=== PATIENT | male | born 1975 | race African-American/Black ===

== ENCOUNTER 2019-04-08 16:52 | Emergency (ER) | payer OTHER ==
[2019-04-08 17:10] VITALS: TEMP 98.4; BMI 24.8
[2019-04-08] MEDS ORDERED: SODIUM CHLORIDE 0.9% 500 ML INFUS.BAG IV ONE (17:20)
--- NOTE | 2019-04-08 17:40 | PDOC ---
Documentation entered by Alyssa Abbasi SCRIBE, acting as scribe for Elsa Mcfadden MD. Elsa Mcfadden MD: This documentation has been prepared by the scribe, Alyssa Abbasi SCRIBE, under my direction and personally reviewed by me in its entirety. I confirm that the documentation accurately reflects all work, treatment, procedures, and medical decision making performed by me. History of Present Illness - General Chief Complaint: Lightheaded Stated Complaint: dizzy Time Seen by Provider: 04/08/19 16:54 History Source: Patient Exam Limitations: No Limitations - History of Present Illness Initial Comments: 04/08/19 17:34 The patient is a 43-year-old male, with a past medical history of NIDDM, who presents to the ED with weakness and lightheadedness today. The patient works at the [employer] and has been out in the sun for the past few days. He is also complaining of B/L LE cramping and nausea, but no vomiting. Patient has been drinking fluids, but states that he "feels dehydrated." He denies any falls or loss of consciousness. The patient denies any fevers, chills, or abdominal pain. He denies any chest pain or shortness of breath. Allergies: NKA Social History: Denies. Surgical History: Denies. Past History - Past Medical History Allergies/Adverse Reactions: Allergies Allergy/AdvReac Type Severity Reaction Status Date / Time No Known Allergies Allergy Verified 04/08/19 16:52 Home Medications: Ambulatory Orders Aspirin [ASA -] 81 mg PO DAILY 04/08/19 Empagliflozin [Jardiance] 25 mg PO DAILY 04/08/19 Glipizide 5 mg PO DAILY 04/08/19 Linagliptin/Metformin HCl [Jentadueto 2.5 mg-1000 mg Tab] 1 each PO BID Diabetes: Yes (NIDDM) - Suicide/Smoking/Psychosocial Hx Smoking History: Never smoked Have you smoked in the past 12 months: No Number of Cigarettes Smoked Daily: 0 Hx Alcohol Use: No Drug/Substance Use Hx: No Substance Use Type: None Review of Systems - Review of Systems Able to Perform ROS?: Yes Comments:: 04/08/19 17:35 GENERAL/CONSTITUTIONAL: (+)Weakness. No fever or chills. No sweats. HEAD, EYES, EARS, NOSE AND THROAT: No change in vision or hearing. No ear pain or discharge. No sore throat or mouth pain. No difficulty swallowing. No congestion. CARDIOVASCULAR: No chest pain or palpitations, syncope or edema. RESPIRATORY: No SOB, cough, wheezing, or hemoptysis. GASTROINTESTINAL No nausea/vomiting. No diarrhea or constipation. No bloody stools. GENITOURINARY: No hematuria, dysuria, frequency, urgency or other changes. MUSCULOSKELETAL: No joint or muscle swelling or pain. No decreased range of motion. No neck or back pain. SKIN: No rash or changes in skin color or lesions. No wounds. NEUROLOGIC: alert and oriented appropriately (+)Lightheadedness. No headache, loss of consciousness. No gait instability. HEMATOLOGIC/LYMPHATIC: No anemia, easy bruising/bleeding, or history of blood clots. No swollen lymph nodes ALLERGIC/IMMUNOLOGIC: No allergies PSYCH: no anxiety/depression All other systems reviewed and negative, or as documented in HPI. *Physical Exam - Vital Signs Last Vital Signs Temp Pulse Resp BP Pulse Ox 98.4 F 20 L 20 122/76 99 04/08/19 16:52 04/08/19 16:52 04/08/19 16:52 04/08/19 16:52 04/08/19 16:52 - Physical Exam Comments: 04/08/19 17:36 General: Well appearing, awake and alert, NAD. HEENT: NCAT, PERRL, EOMI, clear conjunctiva, anicteric, moist mucus membranes, clear oropharynx, no oral lesions.. Neck: neck supple, FROM Resp: CTAB, normal and even respirations, no respiratory distress CVS: mild tachycardia, no murmurs, 2+ peripheral pulses throughout, no peripheral edema Abdomen: soft, NTND, no rebound or guarding. No CVAT. Back: nontender, normal inspection and ROM MSK: no edema, MOTTA x4, ROM intact. No clubbing or cyanosis. normal bulk and tone. Extremities: no calf tenderness Neuro: alert, oriented appropriately; no focal neurologic deficits Skin: warm and well perfused, cap refill <2 sec, normal color 04/08/19 18:23 ED Treatment Course - LABORATORY CBC & Chemistry Diagram: 04/08/19 17:37 04/08/19 17:37 Medical Decision Making - Medical Decision Making 04/08/19 18:20 See HPI for details. Prior notes reviewed, including admissions, discharges and consultations. Vital signs reviewed, no fever, normotensive, mild tachycardia likely from heat exhaustion/dehydration. DDX dehydration, heat exhaustion, rhabdo, electrolyte/metabolic derangements. clinically doubt dka. laboratory results and imaging reviewed, basic labs and lytes wnl, normal wbc ct. glucose normal +hyponatremia. likely dehydration/hypovolemic as he admits to exhaustion and feeling dizzy from heat bicarb mildly low, but does not appear acidotic/septic or toxic. ED course -interventions: IVF. - tolerating PO and on reassessment 6:15PM - feels much improved, abdomen benign. repeat VS normalizing. no distress, no respiratory or abdominal sx. well hydrated, eager for discharge Pt to be discharged in stable condition. Patient and family made aware of clinical impression, treatment recommendations and disposition plan, return precautions discussed (including but not limited to new or persistent/worsening symptoms, pain, fevers, or signs of infection, chest pain, respiratory distress , inability to tolerate oral intake, dehydration, syncope, or neurologic changes ). Follow up with PMD as recommended, follow up information provided, take medications as instructed for duration of time. continue with supportive care, avoid triggers and precipitants. All questions answered to patient's satisfaction and expressed understanding and comfort with this. At the time of discharge, the patient is alert, clinically improved, tolerating po and verbalizes understanding of instructions, satisfied with the care received and felt comfortable with the plan. Patient does not suffer from an acute life- threatening medical condition at this time and is safe for outpatient follow- up. 04/08/19 18:23 04/08/19 18:23 *DC/Admit/Observation/Transfer Diagnosis at time of Disposition: Dizziness, Myalgia, Hyponatremia - Discharge Dispostion Disposition: HOME Condition at time of disposition: Improved Decision to Admit order: No - Referrals [place] [facility] [place] [facility] [Provider Group] [facility] [Provider Group] - Patient Instructions Printed Discharge Instructions: DI for Heat Exhaustion and Heat Stroke, DI for Dizziness-Nonvertigo Additional Instructions: 1) Please follow-up with your primary care doctor in the next 1-2 days. Please call tomorrow for for any urgent issues. 2) You were given a copy of the tests performed today. Please bring the results with you and review them with your primary care doctor. Your laboratory results were normal except for low sodium, which could be dehydration related your blood sugar and muscle enzymes are normal 3) If you have any worsening of symptoms or any other concerns please return to the ED immediately. Return if worsening symptoms including fevers, headache, vomiting, visual or hearing disturbances, abdominal pain, chest pain, shortness of breath, syncope, dehydration, inability to take things by mouth/vomiting, altered mental status, or worsening concerning symptoms. 4) Please continue taking your home medications as directed. Stay well hydrated and rest adequately. Make an appointment. If you cannot follow-up with your primary care doctor please return to the ED - Post Discharge Activity Forms/Work/School Notes: Back to Work
[2019-04-08 17:48] LABS: BASO % 0.5 % (0-2.0); EOS % 0.4 % (0-4.5); HEMATOCRIT 45.3 % (35.4-49); HEMOGLOBIN 15.2 GM/dl (11.7-16.9); LYMPH % 26.3 % (8-40); MCH 30.9 pg (25.7-33.7); MCHC 33.5 g/dl (32.0-35.9); MEAN CELL VOLUME 92.3 fl (80-96); MEAN PLT VOLUME 8.5 fl (7.5-11.1); MONO % 6.1 % (3.8-10.2); NEUT % 66.7 % (42.8-82.8); PLATELET COUNT 262 K/MM3 (134-434); RBC 4.91 M/mm3 (4.00-5.60); RDW 12.9 % (11.9-15.9); WHITE BLOOD COUNT 4.6 K/mm3 (4.0-10.8)
[2019-04-08 18:02] LABS: POTASSIUM 4.1 mmol/L (3.5-5.1)
[2019-04-08 18:31] VITALS: BP 110/79; PULSE 99
== END 2019-04-08 18:32 | disposition home or self-care (01) ==
LOC: FER 16:52
PROC: 3E0337Z Introduction of Electrolytic and Water Balance Substance into Peripheral Vein, Percutaneous Approach (ICD-10-PCS; principal; 2019-04-08)
DX: E87.1 Hypo-osmolality and hyponatremia (principal); R42 Dizziness and giddiness; M79.10 Myalgia, unspecified site; E11.9 Type 2 diabetes mellitus without complications; Z79.82 Long term (current) use of aspirin
CPT/HCPCS: 36415; 80048; 82550; 85025; 99283-25

== ENCOUNTER 2019-04-10 10:00 | Inpatient (IN) | payer SELFPAY ==
[2019-04-10] MEDS ORDERED: SODIUM CHLORIDE 0.9% 1000 ML INFUS.BAG IV ONE ×2 (10:55→12:29)
[2019-04-10] MEDS ORDERED: ONDANSETRON 4 MG/2 ML VIAL IVPUSH ONE (10:56)
[2019-04-10] MEDS ORDERED: ONDANSETRON 4 MG/2 ML VIAL ONE ×2 (11:31→11:34)
[2019-04-10 11:37] LABS: BASO % 0.4 % (0-2.0); HEMOGLOBIN 17.2 GM/dl (11.7-16.9); LYMPH % 8.6 % (8-40); MCH 30.2 pg (25.7-33.7); MCHC 31.9 g/dl (32.0-35.9); MEAN CELL VOLUME 94.6 fl (80-96); MEAN PLT VOLUME 9.1 fl (7.5-11.1); MONO % 4.5 % (3.8-10.2); NEUT % 86.5 % (42.8-82.8); PLATELET COUNT 376 K/MM3 (134-434); RBC 5.71 M/mm3 (4.00-5.60); RDW 13.3 % (11.9-15.9); WHITE BLOOD COUNT 7.7 K/mm3 (4.0-10.8)
[2019-04-10 11:43] LABS: ALBUMIN 4.3 g/dl (3.4-5.0); BILIRUBIN,TOTAL 1.3 mg/dl (0.2-1); CALCIUM 10.5 mg/dl (8.5-10); CREATININE 1.6 mg/dl (0.55-1.3); POTASSIUM 5.9 mmol/L (3.5-5.1)
[2019-04-10 12:06] LABS: EPITHELIAL CELLS RARE /hpf
--- NOTE | 2019-04-10 12:29 | PDOC ---
History of Present Illness - General Chief Complaint: Lightheaded Stated Complaint: LIGHTHEADED History Source: Patient Exam Limitations: No Limitations - History of Present Illness Initial Comments: 04/10/19 12:24 43 yo male h/o NIDDM here for second ED visit for n/v abd pain. pt states he was seen in ED 2 days ago for feeling lightheaded. had been out in sun for fewdays. at that time was felt to be dehydrated. given fluids bolus, labs felt improved and dc home. yesterday pt began to feel worse developed n/v x 2, and vomiting x2 today. all nonbloody nonbilious. states he has not had a bm in several days. stopped his diabetes medication 2 days ago because was not eating or drinnking much . no f/c. does c/o right flank upper rib pain. has had mild cough, no f/c no h/o abdominal surgeries. no sick contacts. no other complaints. does have h/o renal stones, denies dysuria, or hematuria. pt takes glipizide, jardiance, and metformin / litagliptan for DM. no insulin. has not taken med fro 2 days. 04/10/19 14:59 Past History - Past Medical History Allergies/Adverse Reactions: Allergies Allergy/AdvReac Type Severity Reaction Status Date / Time No Known Allergies Allergy Verified 04/08/19 16:52 Home Medications: Ambulatory Orders Aspirin [ASA -] 81 mg PO DAILY 04/08/19 Empagliflozin [Jardiance] 25 mg PO DAILY 04/08/19 Glipizide 5 mg PO DAILY 04/08/19 Linagliptin/Metformin HCl [Jentadueto 2.5 mg-1000 mg Tab] 1 each PO BID COPD: No Diabetes: Yes (NIDDM) - Suicide/Smoking/Psychosocial Hx Smoking History: Never smoked Have you smoked in the past 12 months: No Number of Cigarettes Smoked Daily: 0 Hx Alcohol Use: No Drug/Substance Use Hx: No Substance Use Type: None Review of Systems - Review of Systems Constitutional: No: Chills, Diaphoresis HEENTM: No: Eye Pain Respiratory: No: Cough, Orthopnea ABD/GI: Yes: Constipated, Nausea, Vomiting : No: Burning, Dysuria, Hematuria Musculoskeletal: Yes: Back Pain Neurological: Yes: Weakness, Dizziness All Other Systems: Reviewed and Negative *Physical Exam - Vital Signs Last Vital Signs Temp Pulse Resp BP Pulse Ox 97.4 F L 119 H 20 124/70 100 04/10/19 10:18 04/10/19 10:18 04/10/19 10:18 04/10/19 10:18 04/10/19 10:18 - Physical Exam Comments: 04/10/19 12:26 awake alert lungs clear bilat heart reg tachycardia. no mrg abd soft mild right cva tenderness. abd otherwise soft. neg cabello's sign. ext wwp. nuero alert oriented x 3. ED Treatment Course - LABORATORY CBC & Chemistry Diagram: 04/10/19 10:45 04/10/19 13:40 - ADDITIONAL ORDERS Additional order review: Laboratory Results 04/10/19 04/10/19 04/10/19 11:30 10:45 10:45 WBC RBC Hgb Hct MCV MCH MCHC RDW Plt Count MPV Absolute Neuts (auto) Neutrophils % Lymphocytes % Monocytes % Eosinophils % Basophils % Sodium 133 L Potassium 5.9 H Chloride 101 Carbon Dioxide 7 L Anion Gap 25 H BUN 21.0 H Creatinine 1.6 H Est GFR (CKD-EPI)AfAm 61.11 Est GFR (CKD-EPI)NonAf 52.73 Random Glucose 278 H Calcium 10.5 H Total Bilirubin 1.3 H AST 22 ALT 23 Alkaline Phosphatase 95 Troponin I < 0.03 Total Protein 9.0 H Albumin 4.3 Urine Color Yellow Urine Appearance Clear Urine pH 5.0 Urine Protein 2+ H Urine Glucose (UA) 2+ Urine Ketones 4+ H Urine Blood 2+ H Urine Nitrite Negative Urine Bilirubin 1+ H Urine Urobilinogen 0.2 Ur Leukocyte Esterase Negative Urine RBC 5-10 Urine WBC 0-2 Ur Transition Epith Cell Rare Urine Casts Finely granular 0-1 04/10/19 10:45 WBC 7.7 RBC 5.71 H Hgb 17.2 H Hct 54.0 H D MCV 94.6 MCH 30.2 MCHC 31.9 L RDW 13.3 Plt Count 376 D MPV 9.1 Absolute Neuts (auto) 6.7 Neutrophils % 86.5 H D Lymphocytes % 8.6 D Monocytes % 4.5 Eosinophils % 0.0 D Basophils % 0.4 Sodium Potassium Chloride Carbon Dioxide Anion Gap BUN Creatinine Est GFR (CKD-EPI)AfAm Est GFR (CKD-EPI)NonAf Random Glucose Calcium Total Bilirubin AST ALT Alkaline Phosphatase Troponin I Total Protein Albumin Urine Color Urine Appearance Urine pH Urine Protein Urine Glucose (UA) Urine Ketones Urine Blood Urine Nitrite Urine Bilirubin Urine Urobilinogen Ur Leukocyte Esterase Urine RBC Urine WBC Ur Transition Epith Cell Urine Casts 04/10/19 10:45 RBC 5.71 H MCV 94.6 MCHC 31.9 L RDW 13.3 MPV 9.1 Neutrophils % 86.5 H D Lymphocytes % 8.6 D Monocytes % 4.5 Eosinophils % 0.0 D Basophils % 0.4 - RADIOLOGY Radiology Studies Ordered: Category Date Time Status SPIRAL- RENAL-STONE CT [CT] Stat CT Scan 04/10/19 12:20 Ordered GALLBLADDER US [US] Stat Ultrasound 04/10/19 12:04 Ordered - Medications Given in the ED: ED Medications Discontinued Medications Generic Name Dose Route Start Last Admin Trade Name Freq PRN Reason Stop Dose Admin Ondansetron HCl 4 mg 04/10/19 10:56 04/10/19 11:30 Zofran Injection IVPUSH 04/10/19 10:57 4 mg ONCE ONE Administration Sodium Chloride 1,000 ml 04/10/19 10:55 04/10/19 10:40 Normal Saline - IV 04/10/19 10:56 1,000 ml ONCE ONE Administration Medical Decision Making - Critical Care Time Total Critical Care Time (minutes): 1 (1 hr) Critical Care Statement: 43 yo n/v DM here wtih right sided abd pain. differential considered. found to be in DKA with acidosis ph 7.0 US RUQ with dilated CBD. pt given insulin, insulin gtt with glucose replacement. ARF noted. rescuscitated wt 2 L NS. d/w ICU for admission and admitting service. d/w family regarding findings. - Medical Decision Making 04/10/19 12:27 43 yo DM here with persistant n/v right flank/ abd pain feeling lightheaded. differential dka, dehydration, electrolyte abnormality, renal colic, biliary colic, carla, plan labs lipase cbc cmp ua. iv hydration and antiemetics. labs revealed pt with ketones in urine and blood. glucose mild elevated at 278, AG 25. t bili elevated. will add cpk r/o rhabdo, insulin and glucose. pt with SHERLYN creatinine 1.6, from 1.0 two days prior. 04/10/19 12:53 pt with dilated CBD on ultrasound no stones. noted to be in acute renal failure creatinine 1.6,. will obtain ct a/p eval for renal stone, or obstruction biliary duct. 04/10/19 15:00 pt with mild pancreatitis, dilated CBD. also noted mild DKA, AG initially 25, after fluids 22. sugar only 265. will add lactate r/o lactic acidosis from metformin. ph 7.0 will admit to ICU at [facility]. dW ICU pa , will initiate insulin gtt wtih Glucose at 75 / hr D5 1/2 ns. pt potassium elevated. d/w DR Flores for admission, lactic acid pending. *DC/Admit/Observation/Transfer Diagnosis at time of Disposition: DKA (diabetic ketoacidoses), Intractable vomiting, ARF (acute renal failure) - Discharge Dispostion Condition at time of disposition: Good Decision to Admit order: Yes - Referrals - Patient Instructions - Post Discharge Activity
[2019-04-10 14:02] LABS: ACETONE SERUM POSITIVE MODERATE 2+ (NEGATIVE)
[2019-04-10 14:05] LABS: ANION GAP 22 MMOL/L (8-16); CALCIUM 9.5 mg/dl (8.5-10); CHLORIDE 106 mmol/L (98-107); CO2 6 mmol/L (21-32); CREATININE 1.4 mg/dl (0.55-1.3); GLUCOSE,RANDOM 265 mg/dl (74-106); POTASSIUM 5.4 mmol/L (3.5-5.1); SODIUM 134 mmol/L (136-145)
[2019-04-10] MEDS ORDERED: INSULIN REGULAR HUMAN 100 UNITS/ML *VIAL IVPUSH ONE (14:26)
[2019-04-10 14:29] LABS: VENOUS PC02 29.1 mmHg (41-51)
[2019-04-10 14:31] LABS: VENOUS PO2 26.1 mmHg (30-40)
[2019-04-10 14:32] LABS: VENOUS PH 7.02 (7.31-7.41)
[2019-04-10] MEDS ORDERED: DEXTROSE 5%-0.45% SALINE 1,000 ML IV SCH (14:45)
[2019-04-10] MEDS ORDERED: INSULIN REGULAR HUMAN 100 UNITS/ML *VIAL ONE ×2 (14:46→16:52)
[2019-04-10] MEDS ORDERED: morphine CARPU-JECT 4 MG/1 ML DISP.SYRIN IVPUSH ONE (14:58)
[2019-04-10] MEDS ORDERED: morphine SULFATE 4 MG/ML VIAL ONE (15:26)
[2019-04-10] MEDS ORDERED: INSULIN REGULAR 100 UNITS in SODIUM CHLORIDE 99 ML IVPB SCH ×2 (16:00→16:02)
[2019-04-10 16:45] LABS: CALCIUM 9.1 mg/dl (8.5-10); CHLORIDE 107 mmol/L (98-107); CREATININE 1.3 mg/dl (0.55-1.3); POTASSIUM 4.8 mmol/L (3.5-5.1); SODIUM 132 mmol/L (136-145)
[2019-04-10 17:01] LABS: GLUCOSE,RANDOM 226 mg/dl (74-106)
[2019-04-10 17:04] LABS: ANION GAP 20 MMOL/L (8-16); CO2 < 5 mmol/L (21-32)
[2019-04-10 17:49] LABS: CHOLESTEROL 186 mg/dl (50-200); HDL CHOLESTEROL 56 mg/dl (40-60); LDL CHOLESTEROL (ONLY DFH) 84 mg/dl (5-100); TRIGLYCERIDES 229 mg/dl (0-150)
--- NOTE | 2019-04-10 19:21 | CONSULT ---
Consultation: UPDATE: Pt's BMP once in ICU resulted with anion gap 18, glucose random of 160's , and K of 4.7. Will change IVF to D5-1/2NS + 20KCL @125cc/hr. Will decrease insulin gtt by half due to downtrending glucose. Monitor next BMP around midnight. CONSULT SERVICE: ICU Resident HISTORY OF PRESENT ILLNESS: 43yo M with h/o of T2DM who presents today from [place] [facility] with complaint of nausea and NB/NB emesis x1 found to be in DKA. Pt normally takes Metformin/Litagliptin combo, Jardiance, and Glipizide for glycemic control. Unfortunately patient did not have enough money for his diabetic medications and he was unable to get new medications for the past 2 days. Pt was previously seen in [facility] for same complaints 2 days prior, however this was attributed to sun-exposure and resolved after IVF was administered. Today in [facility] ICU pt endorses improved nausea with no other episodes of emesis, however his general malaise continues. He reports a 2 days history of poor appetite and his last meal was at dinner 04/09 which composed of a bowl of soup (mostly broth). Pt denies any headaches, clouding of sensorium, blurry vision, fever/chills, shortness of breath, cough, palpitations, chest pain/discomfort, abdominal pain , diarrhea/constipation, dysuria, polyuria, hematuria, melena, focal neurological deficits. REVIEW OF SYSTEMS: As per HPI PHYSICAL EXAMINATION Vital Signs - 24 hr 04/10/19 04/10/19 04/10/19 10:18 12:15 14:20 Temperature 97.4 F L 98.1 F Pulse Rate 119 H Pulse Rate [ 104 H 109 H Apical] Respiratory 20 20 18 Rate Blood Pressure 124/70 Blood Pressure 119/72 137/81 [Left Arm] O2 Sat by Pulse 100 9 L 99 Oximetry (%) 04/10/19 04/10/19 04/10/19 16:00 17:26 17:33 Temperature 98.1 F 98.1 F 98.1 F Pulse Rate 110 H Pulse Rate [ 108 H 111 H Apical] Respiratory 18 18 18 Rate Blood Pressure 140/84 Blood Pressure 138/81 140/84 [Left Arm] O2 Sat by Pulse 100 100 Oximetry (%) 04/10/19 18:26 Temperature 98.1 F Pulse Rate 110 H Pulse Rate [ Apical] Respiratory 18 Rate Blood Pressure 140/84 Blood Pressure [Left Arm] O2 Sat by Pulse Oximetry (%) GENERAL: NAD, awake, alert, and fully oriented HEENT: NC/AT, EOMI, NGCO, sclera anicteric, [id number] mucosa no abnormalities of posterior oropharynx NECK: No JVD LUNGS: CTA bilaterally. No wheezes, and no crackles. No accessory muscle use. 98 % on RA HEART: Tachycardic@104bpm with regular rhythm, normal S1 and S2 without murmur ABDOMEN: Soft, NT/ND, normoactive BS, no guarding, no hepatomegaly. MUSCULOSKELETAL: No CVA tenderness. EXTREMITIES: 2+ pulses, warm, well-perfused. No calf tenderness. No peripheral edema. NEUROLOGICAL: CN II-XII intact with 5/5 strength throughout and sensation intact throughout. Normal speech. Normal gai PSYCHIATRIC: Cooperative. Good eye contact. Appropriate mood and affect. SKIN: Warm, dry, no rashes or lesions noted. Laboratory Results 04/10/19 04/10/19 04/10/19 10:45 10:45 10:45 WBC 7.7 RBC 5.71 H Hgb 17.2 H Hct 54.0 H D MCV 94.6 MCH 30.2 MCHC 31.9 L RDW 13.3 Plt Count 376 D MPV 9.1 Absolute Neuts (auto) 6.7 Neutrophils % 86.5 H D Lymphocytes % 8.6 D Monocytes % 4.5 Eosinophils % 0.0 D Basophils % 0.4 VBG pH POC VBG pCO2 POC VBG pO2 VBG HCO3 VBG O2 Sat (Denise) VBG Base Excess Sodium 133 L Potassium 5.9 H Chloride 101 Carbon Dioxide 7 L Anion Gap 25 H BUN 21.0 H Creatinine 1.6 H Est GFR (CKD-EPI)AfAm 61.11 Est GFR (CKD-EPI)NonAf 52.73 POC Glucometer Random Glucose 278 H Lactic Acid Calcium 10.5 H Total Bilirubin 1.3 H AST 22 ALT 23 Alkaline Phosphatase 95 Creatine Kinase Troponin I < 0.03 Total Protein 9.0 H Albumin 4.3 Triglycerides Cholesterol Total LDL Cholesterol HDL Cholesterol Lipase Urine Color Urine Appearance Urine pH Urine Protein Urine Glucose (UA) Urine Ketones Urine Blood Urine Nitrite Urine Bilirubin Urine Urobilinogen Ur Leukocyte Esterase Urine RBC Urine WBC Ur Transition Epith Cell Urine Casts Acetone, Qual 04/10/19 04/10/19 04/10/19 16:10 16:10 18:11 WBC RBC Hgb Hct MCV MCH MCHC RDW Plt Count MPV Absolute Neuts (auto) Neutrophils % Lymphocytes % Monocytes % Eosinophils % Basophils % VBG pH POC VBG pCO2 POC VBG pO2 VBG HCO3 VBG O2 Sat (Denise) VBG Base Excess Sodium 132 L Potassium 4.8 Chloride 107 Carbon Dioxide < 5 L Anion Gap 20 H BUN 22.0 H Creatinine 1.3 Est GFR (CKD-EPI)AfAm 78.55 Est GFR (CKD-EPI)NonAf 67.77 POC Glucometer 211 Random Glucose 226 H Lactic Acid Calcium 9.1 Total Bilirubin AST ALT Alkaline Phosphatase Creatine Kinase Troponin I Total Protein Albumin Triglycerides 229 H Cholesterol 186 Total LDL Cholesterol 84 HDL Cholesterol 56 Lipase Urine Color Urine Appearance Urine pH Urine Protein Urine Glucose (UA) Urine Ketones Urine Blood Urine Nitrite Urine Bilirubin Urine Urobilinogen Ur Leukocyte Esterase Urine RBC Urine WBC Ur Transition Epith Cell Urine Casts Acetone, Qual Active Medications Generic Name Dose Route Start Last Admin Trade Name Freq PRN Reason Stop Dose Admin Dextrose/Sodium Chloride 1,000 mls @ 75 mls/hr 04/10/19 14:45 04/10/19 14:50 D5-1/2ns - IV 75 mls/hr ASDIR SYED Administration Insulin Human Regular 100 100 mls @ 3 mls/hr 04/10/19 16:02 04/10/19 18:10 units/ Sodium Chloride IVPB 2 units/hr TITR SYED 2 mls/hr Titration Protocol 3 UNITS/HR ASSESSMENT/PLAN: Diabetic Ketoacidosis Polycythemia Mildly dilated CBD Hyperbilirubinemia Pseudohyponatremia --DKA criteria: (1) pH 7.02 (2) HCO <5 (3) Glucose >250 (4) Anion Gap 25 (5) Keturia --Insulin gtt .1U/kg/hr --Decrease to 0.5U/kg/hr if glucose downtrending <250 without closed gap --Original potassium 5.9 so IVF initiated without potassium --Monitor BMP q3h and monitor potassium; suspect adding potassium to fluids due to downtrending levels --BMP, Mg, Phos Stat ordered --IVF D5-1/2NS@75cc/hr currently --Will change based on stat BMP --Once anion gap closes can transition diet and to subcutaneous insulin coverage --Continue holding oral glycemic control while inpatient --GI consult for recommendations on moderately dilated CBD (0.6mm) --Likely will need MRCP (? outpatient vs. inpatient) --Monitor bilirubin in daily labs FEN: Fluids: D5-1/2NS@75cc/hr Electrolyte abnormalities: Na corrected 135 from previous BMP; Monitor Na levels Nutrition: NPO until anion gap closes (<12) PPX: DVT - Heparin Sq GI - Not indicated currently Dispo: ICU monitoring while in acute DKA stages Fernandez Reyes, DO - IM PGY-2 Visit type - Emergency Visit Emergency Visit: Yes ED Registration Date: 04/10/19 Care time: The patient presented to the Emergency Department on the above date and was hospitalized for further evaluation of their emergent condition. - New Patient This patient is new to me today: Yes Date on this admission: 04/10/19 - Critical Care Critical Care patient: Yes Total Critical Care Time (in minutes): 35 Critical Care Statement: The care of this patient involved high complexity decision making to prevent further life threatening deterioration of the patient 's condition and/or to evaluate & treat vital organ system(s) failure or risk of failure.
--- NOTE | 2019-04-10 20:01 | HP ---
CHIEF COMPLAINT: nausea/ vomiting PCP: HISTORY OF PRESENT ILLNESS: Critically ill 43 yo male transferred from [facility], h/o NIDDM came to hospital this past thursday, now returning with nausea, vomiting since about thursday, associated with some abdominal pain. Nonbloody/nonbilious vomiting, unable to eat or drink much. He was not able to obtain his DM meds due to insurance reasons. pt supoosed to take glipizide, jardiance, and metformin / litagliptan for DM ER course was notable for: (1) abd ct (2) liver u/s (3) Recent Travel: no PAST MEDICAL HISTORY: DM for last 7 years at least PAST SURGICAL HISTORY: no Social History: Smoking: no Alcohol: no Drugs: socially Family History: DM in multiple family members including mother Allergies No Known Allergies Allergy (Verified 04/08/19 16:52) HOME MEDICATIONS: Home Medications Medication Instructions Recorded Aspirin [ASA -] 81 mg PO DAILY 04/08/19 Empagliflozin [Jardiance] 25 mg PO DAILY 04/08/19 Glipizide 5 mg PO DAILY 04/08/19 Linagliptin/Metformin HCl 1 each PO BID 04/08/19 [Jentadueto 2.5 mg-1000 mg Tab] REVIEW OF SYSTEMS CONSTITUTIONAL: Absent: fever, chills, diaphoresis, weight change present- generalized weakness, malaise, loss of appetite, HEENT: Absent: rhinorrhea, nasal congestion, throat pain, throat swelling, difficulty swallowing, mouth swelling, ear pain, eye pain, visual changes CARDIOVASCULAR: Absent: chest pain, syncope, palpitations, irregular heart rate, lightheadedness , peripheral edema RESPIRATORY: Absent: cough, shortness of breath, dyspnea with exertion, orthopnea, wheezing, stridor, hemoptysis GASTROINTESTINAL: Absent: abdominal distension, diarrhea, constipation, melena, hematochezia present- nausea, vomiting, abdominal pain, GENITOURINARY: Absent: dysuria, frequency, urgency, hesitancy, hematuria, flank pain, genital pain MUSCULOSKELETAL: Absent: myalgia, arthralgia, joint swelling, back pain, neck pain SKIN: Absent: rash, itching, pallor HEMATOLOGIC/IMMUNOLOGIC: Absent: easy bleeding, easy bruising, lymphadenopathy, frequent infections ENDOCRINE: Absent: unexplained weight gain, unexplained weight loss, heat intolerance, cold intolerance NEUROLOGIC: Absent: headache, focal weakness or paresthesias, dizziness, unsteady gait, seizure, mental status changes, bladder or bowel incontinence PSYCHIATRIC: Absent: anxiety, depression, suicidal or homicidal ideation, hallucinations. PHYSICAL EXAMINATION Vital Signs - 24 hr 04/10/19 04/10/19 04/10/19 10:18 12:15 14:20 Temperature 97.4 F L 98.1 F Pulse Rate 119 H Pulse Rate [ 104 H 109 H Apical] Respiratory 20 20 18 Rate Blood Pressure 124/70 Blood Pressure 119/72 137/81 [Left Arm] O2 Sat by Pulse 100 9 L 99 Oximetry (%) 04/10/19 04/10/19 04/10/19 16:00 17:26 17:33 Temperature 98.1 F 98.1 F 98.1 F Pulse Rate 110 H Pulse Rate [ 108 H 111 H Apical] Respiratory 18 18 18 Rate Blood Pressure 140/84 Blood Pressure 138/81 140/84 [Left Arm] O2 Sat by Pulse 100 100 Oximetry (%) 04/10/19 18:26 Temperature 98.1 F Pulse Rate 110 H Pulse Rate [ Apical] Respiratory 18 Rate Blood Pressure 140/84 Blood Pressure [Left Arm] O2 Sat by Pulse Oximetry (%) GENERAL: Awake, alert, and fully oriented, in no acute distress. HEAD: Normal with no signs of trauma. EYES: Pupils equal, round and reactive to light, extraocular movements intact, sclera anicteric, conjunctiva clear. dry mucous membranes EARS, NOSE, THROAT: Ears normal, nares patent, oropharynx clear without exudates. Moist mucous membranes. NECK: Normal range of motion, supple without lymphadenopathy, JVD, or masses. LUNGS: Breath sounds equal, clear to auscultation bilaterally. No wheezes, and no crackles. No accessory muscle use. HEART: Regular rate and rhythm, normal S1 and S2 without murmur, rub or gallop. ABDOMEN: RUQ tenderness on palpation MUSCULOSKELETAL: Normal range of motion at all joints. No bony deformities or tenderness. No CVA tenderness. UPPER EXTREMITIES: 2+ pulses, warm, well-perfused. No cyanosis. No clubbing. No peripheral edema. LOWER EXTREMITIES: 2+ pulses, warm, well-perfused. No calf tenderness. No peripheral edema. NEUROLOGICAL: Cranial nerves II-XII intact. Normal speech. Normal gait. PSYCHIATRIC: Cooperative. Good eye contact. Appropriate mood and affect. SKIN: Warm, dry, normal turgor, no rashes or lesions noted, normal capillary refill. Laboratory Results - last 24 hr 04/10/19 04/10/19 04/10/19 10:45 10:45 10:45 WBC 7.7 RBC 5.71 H Hgb 17.2 H Hct 54.0 H D MCV 94.6 MCH 30.2 MCHC 31.9 L RDW 13.3 Plt Count 376 D MPV 9.1 Absolute Neuts (auto) 6.7 Neutrophils % 86.5 H D Lymphocytes % 8.6 D Monocytes % 4.5 Eosinophils % 0.0 D Basophils % 0.4 VBG pH POC VBG pCO2 POC VBG pO2 VBG HCO3 VBG O2 Sat (Denise) VBG Base Excess Sodium 133 L Potassium 5.9 H Chloride 101 Carbon Dioxide 7 L Anion Gap 25 H BUN 21.0 H Creatinine 1.6 H Est GFR (CKD-EPI)AfAm 61.11 Est GFR (CKD-EPI)NonAf 52.73 POC Glucometer Random Glucose 278 H Lactic Acid Calcium 10.5 H Total Bilirubin 1.3 H AST 22 ALT 23 Alkaline Phosphatase 95 Creatine Kinase Troponin I < 0.03 Total Protein 9.0 H Albumin 4.3 Triglycerides Cholesterol Total LDL Cholesterol HDL Cholesterol Lipase Urine Color Urine Appearance Urine pH Urine Protein Urine Glucose (UA) Urine Ketones Urine Blood Urine Nitrite Urine Bilirubin Urine Urobilinogen Ur Leukocyte Esterase Urine RBC Urine WBC Ur Transition Epith Cell Urine Casts Acetone, Qual 04/10/19 04/10/19 04/10/19 11:30 13:40 13:40 WBC RBC Hgb Hct MCV MCH MCHC RDW Plt Count MPV Absolute Neuts (auto) Neutrophils % Lymphocytes % Monocytes % Eosinophils % Basophils % VBG pH 7.02 L* POC VBG pCO2 29.1 L POC VBG pO2 26.1 L VBG HCO3 7.1 L VBG O2 Sat (Denise) 37.5 L VBG Base Excess -25.2 L Sodium 134 L Potassium 5.4 H Chloride 106 Carbon Dioxide 6 L Anion Gap 22 H BUN 22.0 H Creatinine 1.4 H Est GFR (CKD-EPI)AfAm 71.82 Est GFR (CKD-EPI)NonAf 61.96 POC Glucometer Random Glucose 265 H Lactic Acid Calcium 9.5 Total Bilirubin AST ALT Alkaline Phosphatase Creatine Kinase 84 Troponin I Total Protein Albumin Triglycerides Cholesterol Total LDL Cholesterol HDL Cholesterol Lipase Urine Color Yellow Urine Appearance Clear Urine pH 5.0 Urine Protein 2+ H Urine Glucose (UA) 2+ Urine Ketones 4+ H Urine Blood 2+ H Urine Nitrite Negative Urine Bilirubin 1+ H Urine Urobilinogen 0.2 Ur Leukocyte Esterase Negative Urine RBC 5-10 Urine WBC 0-2 Ur Transition Epith Cell Rare Urine Casts Finely granular 0-1 Acetone, Qual Positive moderate 2+ 04/10/19 04/10/19 04/10/19 13:40 15:52 16:10 WBC RBC Hgb Hct MCV MCH MCHC RDW Plt Count MPV Absolute Neuts (auto) Neutrophils % Lymphocytes % Monocytes % Eosinophils % Basophils % VBG pH POC VBG pCO2 POC VBG pO2 VBG HCO3 VBG O2 Sat (Denise) VBG Base Excess Sodium Potassium Chloride Carbon Dioxide Anion Gap BUN Creatinine Est GFR (CKD-EPI)AfAm Est GFR (CKD-EPI)NonAf POC Glucometer 228 Random Glucose Lactic Acid 1.3 Calcium Total Bilirubin AST ALT Alkaline Phosphatase Creatine Kinase Troponin I Total Protein Albumin Triglycerides Cholesterol Total LDL Cholesterol HDL Cholesterol Lipase 1753 H Urine Color Urine Appearance Urine pH Urine Protein Urine Glucose (UA) Urine Ketones Urine Blood Urine Nitrite Urine Bilirubin Urine Urobilinogen Ur Leukocyte Esterase Urine RBC Urine WBC Ur Transition Epith Cell Urine Casts Acetone, Qual 04/10/19 04/10/19 04/10/19 16:10 16:10 18:11 WBC RBC Hgb Hct MCV MCH MCHC RDW Plt Count MPV Absolute Neuts (auto) Neutrophils % Lymphocytes % Monocytes % Eosinophils % Basophils % VBG pH POC VBG pCO2 POC VBG pO2 VBG HCO3 VBG O2 Sat (Denise) VBG Base Excess Sodium 132 L Potassium 4.8 Chloride 107 Carbon Dioxide < 5 L Anion Gap 20 H BUN 22.0 H Creatinine 1.3 Est GFR (CKD-EPI)AfAm 78.55 Est GFR (CKD-EPI)NonAf 67.77 POC Glucometer 211 Random Glucose 226 H Lactic Acid Calcium 9.1 Total Bilirubin AST ALT Alkaline Phosphatase Creatine Kinase Troponin I Total Protein Albumin Triglycerides 229 H Cholesterol 186 Total LDL Cholesterol 84 HDL Cholesterol 56 Lipase Urine Color Urine Appearance Urine pH Urine Protein Urine Glucose (UA) Urine Ketones Urine Blood Urine Nitrite Urine Bilirubin Urine Urobilinogen Ur Leukocyte Esterase Urine RBC Urine WBC Ur Transition Epith Cell Urine Casts Acetone, Qual 04/10/19 19:30 WBC RBC Hgb Hct MCV MCH MCHC RDW Plt Count MPV Absolute Neuts (auto) Neutrophils % Lymphocytes % Monocytes % Eosinophils % Basophils % VBG pH POC VBG pCO2 POC VBG pO2 VBG HCO3 VBG O2 Sat (Denise) VBG Base Excess Sodium Potassium Chloride Carbon Dioxide Anion Gap BUN Creatinine Est GFR (CKD-EPI)AfAm Est GFR (CKD-EPI)NonAf POC Glucometer 207 Random Glucose Lactic Acid Calcium Total Bilirubin AST ALT Alkaline Phosphatase Creatine Kinase Troponin I Total Protein Albumin Triglycerides Cholesterol Total LDL Cholesterol HDL Cholesterol Lipase Urine Color Urine Appearance Urine pH Urine Protein Urine Glucose (UA) Urine Ketones Urine Blood Urine Nitrite Urine Bilirubin Urine Urobilinogen Ur Leukocyte Esterase Urine RBC Urine WBC Ur Transition Epith Cell Urine Casts Acetone, Qual imaging reviewed ekg showed sinus tachycardia ASSESSMENT/PLAN: #DKA - likely secondary to medication medication noncompliance. -admit to icu -insulin drip titrate as needed -IV fluid hydration - 1/2 NS/ D5W -when AG closes bridge with sc basal insulin -check electrolyes including mg, phos and correct as needed -switch insulin sliding scale for coverage once DKA resolves -zofran IV prn if nausea or vomiting -nurse informatics educator -start clear liquid diet and advance as tolerated #SHERLYN - likely prerenal azotemia from fluid losses -i/o -daily weights -renal u/s -avoid nephrotoxins #HAGMA - likely secondary to DKA -send ABG -correct underlying DKA #CBD dilatation, RUQ tenderness, and slight bilirubinemia - concerning for possible choledocholithiasis, cholangitis, -GI consult for possible MRCP/ ERCP #DVT ppx - heparin sc Critical care time 35 min Visit type - Emergency Visit Emergency Visit: Yes ED Registration Date: 04/10/19 Care time: The patient presented to the Emergency Department on the above date and was hospitalized for further evaluation of their emergent condition. - New Patient This patient is new to me today: Yes Date on this admission: 04/10/19 - Critical Care Critical Care patient: Yes Total Critical Care Time (in minutes): 35 Critical Care Statement: The care of this patient involved high complexity decision making to prevent further life threatening deterioration of the patient 's condition and/or to evaluate & treat vital organ system(s) failure or risk of failure.
[2019-04-10] MEDS ORDERED: ONDANSETRON 4 MG/2 ML VIAL IVPUSH PRN (20:42)
[2019-04-10 21:01] LABS: BLOOD UREA NITROGEN 19.2 mg/dL (7-18); CALCIUM 8.7 mg/dL (8.5-10.1); CREATININE 1.4 mg/dL (0.55-1.3); MAGNESIUM 2.1 mg/dL (1.8-2.4); PHOSPHOROUS 2.4 mg/dL (2.5-4.9); POTASSIUM 4.6 mmol/L (3.5-5.1)
[2019-04-10] MEDS: D5-1/2NS+20 MEQ KCL - 20 MEQ/1,000 ML INFUS.BAG IV SCH ×2 (21:22→21:31)
[2019-04-10] MEDS: HEPARIN NA (PORCINE) 5,000 UNITS/ML 1ML VIAL SQ SCH (21:26)
--- NOTE | 2019-04-11 00:10 | EKG ---
Test Reason : Blood Pressure : / mmHG Vent. Rate : 118 BPM Atrial Rate : 118 BPM P-R Int : 130 ms QRS Dur : 090 ms QT Int : 334 ms P-R-T Axes : 065 077 069 degrees QTc Int : 468 ms POOR DATA QUALITY, INTERPRETATION MAY BE ADVERSELY AFFECTED SINUS TACHYCARDIA OTHERWISE NORMAL ECG NO PREVIOUS ECGS AVAILABLE Confirmed by MD Alfred, Shaq ([id number]) on 04/11/2019 12:10:36 AM Referred By: MD MARS Confirmed By:Shaq Simon MD
[2019-04-11 00:34] LABS: BLOOD UREA NITROGEN 16.9 mg/dL (7-18); CALCIUM 8.8 mg/dL (8.5-10.1); CREATININE 1.3 mg/dL (0.55-1.3); POTASSIUM 4.7 mmol/L (3.5-5.1)
[2019-04-11 04:52] LABS: BLOOD UREA NITROGEN 15.8 mg/dL (7-18); CALCIUM 8.9 mg/dL (8.5-10.1); CREATININE 1.3 mg/dL (0.55-1.3); POTASSIUM 4.3 mmol/L (3.5-5.1)
[2019-04-11] MEDS: D5-1/2NS+20 MEQ KCL - 20 MEQ/1,000 ML INFUS.BAG IV SCH (05:40)
[2019-04-11 06:08] LABS: HEMATOCRIT 45.1 % (35.4-49); HEMOGLOBIN 15.2 GM/dL (11.7-16.9); MCH 30.8 pg (25.7-33.7); MCHC 33.7 g/dl (32.0-35.9); MEAN CELL VOLUME 91.4 fl (80-96); PLATELET COUNT 294 K/MM3 (134-434); RBC 4.93 M/mm3 (4.00-5.60); RDW 13.8 % (11.9-15.9); WHITE BLOOD COUNT 6.1 K/mm3 (4.0-10.0)
[2019-04-11] MEDS ORDERED: INSULIN (LEVEMIR) 100 UNITS/ML UNITS SQ ONE (06:18)
[2019-04-11 06:38] LABS: ALBUMIN 3.6 g/dl (3.4-5.0); BILIRUBIN,TOTAL 0.7 mg/dL (0.2-1); CREATININE 1.3 mg/dL (0.55-1.3); MAGNESIUM 2.5 mg/dL (1.8-2.4); POTASSIUM 4.4 mmol/L (3.5-5.1); TOT PROT 7.6 g/dl (6.4-8.2)
--- NOTE | 2019-04-11 08:01 | PN ---
Progress Note, Physician History of Present Illness: 43 yo male h/o NIDDM here for second ED visit for n/v abd pain. pt states he was seen in ED 2 days ago for feeling lightheaded. He had been out in sun for at that time he felt to be dehydrated. given fluids bolus, labs felt improved and dc home. yesterday pt began to feel worse developed n/v x 2, and vomiting x2 today- nonbloody nonbilious. Stopped his diabetes medication 2 days ago because was not eating or drinking much.No sick contacts. no other complaints. does have h/o renal stones, denies dysuria, or hematuria. home meds: glipizide, jardiance, and metformin / litagliptan for DM. no insulin. has not taken med fro 2 days. - Current Medication List Current Medications: Active Medications Heparin Sodium (Porcine) (Heparin -) 5,000 unit SQ BID [facility] Last Admin: 04/10/19 21:26 Dose: 5,000 unit Potassium Chloride/Dextrose/Sod Cl (D5-1/2ns+20 Meq Kcl -) 20 meq in 1,000 mls @ 125 mls/hr IV ASDIR [facility] Last Admin: 04/11/19 05:40 Dose: 125 mls/hr Insulin Aspart (Novolog Vial Sliding Scale -) 1 vial SQ ACHS [facility]; Protocol Insulin Detemir (Levemir Vial) 10 units SQ HS [facility] Ondansetron HCl (Zofran Injection) 4 mg IVPUSH Q6H PRN PRN Reason: NAUSEA AND/OR VOMITING - Objective Vital Signs: Vital Signs Temperature 98.4 F 04/11/19 06:00 Pulse Rate 95 H 04/11/19 06:00 Respiratory Rate 17 04/11/19 06:00 Blood Pressure 111/76 04/11/19 06:00 O2 Sat by Pulse Oximetry (%) 100 04/10/19 20:44 Constitutional: Yes: Well Nourished, No Distress, Calm Eyes: Yes: WNL, Conjunctiva Clear, EOM Intact HENT: Yes: WNL, Atraumatic, Normocephalic Neck: Yes: WNL, Supple, Trachea Midline Cardiovascular: Yes: WNL, Regular Rate and Rhythm Respiratory: Yes: WNL, Regular, CTA Bilaterally Gastrointestinal: Yes: WNL, Normal Bowel Sounds, Soft Genitourinary: Yes: WNL Musculoskeletal: Yes: WNL Extremities: Yes: WNL Edema: No Peripheral Pulses WNL: Yes Integumentary: Yes: WNL Neurological: Yes: WNL, Alert, Oriented ...Motor Strength: WNL Psychiatric: Yes: WNL Labs: CBC, BMP 04/11/19 05:45 04/11/19 05:45 - ....Imaging Cat Scan: Report Reviewed (non obs renal calculi) Problem List - Problems (1) Diabetes Code(s): E11.9 - TYPE 2 DIABETES MELLITUS WITHOUT COMPLICATIONS (2) ARF (acute renal failure) Assessment/Plan: Cr at baseline anion gap resolved with IVF Code(s): N17.9 - ACUTE KIDNEY FAILURE, UNSPECIFIED (3) DKA (diabetic ketoacidoses) Assessment/Plan: resolved with insulin gtt and fluids Code(s): E11.10 - TYPE 2 DIABETES MELLITUS WITH KETOACIDOSIS WITHOUT COMA (4) Prophylactic measure Assessment/Plan: FEN resume diabetic diet monitor electrolytes nutrition counseling DVT Heparin sq Dispo maintain as inpatient transfer to [facility] bed when available full code discharge planning critical care consultation appreciated Code(s): Z29.9 - ENCOUNTER FOR PROPHYLACTIC MEASURES, UNSPECIFIED Visit type - Emergency Visit Emergency Visit: Yes ED Registration Date: 04/10/19 Care time: The patient presented to the Emergency Department on the above date and was hospitalized for further evaluation of their emergent condition. - New Patient This patient is new to me today: Yes Date on this admission: 04/11/19 - Critical Care Critical Care patient: Yes Total Critical Care Time (in minutes): 30 Critical Care Statement: The care of this patient involved high complexity decision making to prevent further life threatening deterioration of the patient 's condition and/or to evaluate & treat vital organ system(s) failure or risk of failure.
[2019-04-11] MEDS ORDERED: MAG HYDROX/AL HYDROX/SIMETH 30 ML UNIT-DOSE CUP PO ONE (09:15)
[2019-04-11] MEDS ORDERED: PNEUMOC 13-VAL CONJ-DIP CRM/PF 0.5 ML DISP.SYRIN IM ONE (09:47)
[2019-04-11] MEDS: HEPARIN NA (PORCINE) 5,000 UNITS/ML 1ML VIAL SQ SCH ×2 (09:54→21:34)
[2019-04-11] MEDS ORDERED: PNEUMOCOCCAL 23 VACCINE 0.5 ML VIAL IM ONE (10:00)
[2019-04-11] MEDS: INSULIN SLIDING SCALE (NOVOLOG) 1 VIAL SQ SCH ×3 (11:45→21:35)
--- NOTE | 2019-04-11 12:42 | PN ---
Teaching Attending Note Name of Resident: Fernandez Julien ATTENDING PHYSICIAN STATEMENT I saw and evaluated the patient. I reviewed the resident's note and discussed the case with the resident. I agree with the resident's findings and plan as documented. SUBJECTIVE: Patient seen and examined in the ICU. Awake and alert. Feels overall better. Currently off IV Insulin drip. Intake & Output 04/08/19 04/09/19 04/10/19 04/11/19 23:59 23:59 23:59 23:59 Intake Total 2000 1295 Output Total 700 1000 Balance 1300 295 Weight 157 lb 5.547 oz 154 lb 6 oz Last Vital Signs Temp Pulse Resp BP Pulse Ox 98.4 F 95 H 17 111/76 100 04/11/19 06:00 04/11/19 06:00 04/11/19 06:00 04/11/19 06:00 04/11/19 09:00 Active Medications Heparin Sodium (Porcine) (Heparin -) 5,000 unit SQ BID [facility] Last Admin: 04/11/19 09:54 Dose: 5,000 unit Potassium Chloride/Dextrose/Sod Cl (D5-1/2ns+20 Meq Kcl -) 20 meq in 1,000 mls @ 125 mls/hr IV ASDIR [facility] Last Admin: 04/11/19 05:40 Dose: 125 mls/hr Insulin Aspart (Novolog Vial Sliding Scale -) 1 vial SQ ACHS [facility]; Protocol Insulin Detemir (Levemir Vial) 10 units SQ HS [facility] Ondansetron HCl (Zofran Injection) 4 mg IVPUSH Q6H PRN PRN Reason: NAUSEA AND/OR VOMITING GENERAL: Awake, alert, and fully oriented, in no acute distress. HEAD: Normal with no signs of trauma. EYES: Pupils equal, round and reactive to light, extraocular movements intact, sclera anicteric, conjunctiva clear. EARS, NOSE, THROAT: Ears normal, nares patent, oropharynx clear without exudates. Moist mucous membranes. NECK: Normal range of motion, supple without lymphadenopathy, JVD, or masses. LUNGS: Breath sounds equal, clear to auscultation bilaterally. No wheezes, and no crackles. No accessory muscle use. HEART: Regular rate and rhythm, normal S1 and S2 without murmur, rub or gallop. ABDOMEN: Soft, NT, ND, (+) BS MUSCULOSKELETAL: Normal range of motion at all joints. No bony deformities or tenderness. No CVA tenderness. UPPER EXTREMITIES: 2+ pulses, warm, well-perfused. No cyanosis. No clubbing. No peripheral edema. LOWER EXTREMITIES: 2+ pulses, warm, well-perfused. No calf tenderness. No peripheral edema. NEUROLOGICAL: Non-focal PSYCHIATRIC: Cooperative. SKIN: Warm, dry, normal turgor, no rashes or lesions noted, normal capillary refill. Laboratory Results - last 24 hr 04/10/19 04/10/19 04/10/19 10:45 10:45 10:45 WBC 7.7 RBC 5.71 H Hgb 17.2 H Hct 54.0 H D MCV 94.6 MCH 30.2 MCHC 31.9 L RDW 13.3 Plt Count 376 D MPV 9.1 Absolute Neuts (auto) 6.7 Neutrophils % 86.5 H D Lymphocytes % 8.6 D Monocytes % 4.5 Eosinophils % 0.0 D Basophils % 0.4 VBG pH POC VBG pCO2 POC VBG pO2 VBG HCO3 VBG O2 Sat (Denise) VBG Base Excess Sodium 133 L Potassium 5.9 H Chloride 101 Carbon Dioxide 7 L Anion Gap 25 H BUN 21.0 H Creatinine 1.6 H Est GFR (CKD-EPI)AfAm 61.11 Est GFR (CKD-EPI)NonAf 52.73 POC Glucometer Random Glucose 278 H Lactic Acid Calcium 10.5 H Total Bilirubin 1.3 H AST 22 ALT 23 Alkaline Phosphatase 95 Creatine Kinase Troponin I < 0.03 Total Protein 9.0 H Albumin 4.3 Triglycerides Cholesterol Total LDL Cholesterol HDL Cholesterol Lipase Urine Color Urine Appearance Urine pH Urine Protein Urine Glucose (UA) Urine Ketones Urine Blood Urine Nitrite Urine Bilirubin Urine Urobilinogen Ur Leukocyte Esterase Urine RBC Urine WBC Ur Transition Epith Cell Urine Casts Acetone, Qual 04/10/19 04/10/19 04/10/19 11:30 13:40 13:40 WBC RBC Hgb Hct MCV MCH MCHC RDW Plt Count MPV Absolute Neuts (auto) Neutrophils % Lymphocytes % Monocytes % Eosinophils % Basophils % VBG pH 7.02 L* POC VBG pCO2 29.1 L POC VBG pO2 26.1 L VBG HCO3 7.1 L VBG O2 Sat (Denise) 37.5 L VBG Base Excess -25.2 L Sodium 134 L Potassium 5.4 H Chloride 106 Carbon Dioxide 6 L Anion Gap 22 H BUN 22.0 H Creatinine 1.4 H Est GFR (CKD-EPI)AfAm 71.82 Est GFR (CKD-EPI)NonAf 61.96 POC Glucometer Random Glucose 265 H Lactic Acid Calcium 9.5 Total Bilirubin AST ALT Alkaline Phosphatase Creatine Kinase 84 Troponin I Total Protein Albumin Triglycerides Cholesterol Total LDL Cholesterol HDL Cholesterol Lipase Urine Color Yellow Urine Appearance Clear Urine pH 5.0 Urine Protein 2+ H Urine Glucose (UA) 2+ Urine Ketones 4+ H Urine Blood 2+ H Urine Nitrite Negative Urine Bilirubin 1+ H Urine Urobilinogen 0.2 Ur Leukocyte Esterase Negative Urine RBC 5-10 Urine WBC 0-2 Ur Transition Epith Cell Rare Urine Casts Finely granular 0-1 Acetone, Qual Positive moderate 2+ 04/10/19 04/10/19 04/10/19 13:40 15:52 16:10 WBC RBC Hgb Hct MCV MCH MCHC RDW Plt Count MPV Absolute Neuts (auto) Neutrophils % Lymphocytes % Monocytes % Eosinophils % Basophils % VBG pH POC VBG pCO2 POC VBG pO2 VBG HCO3 VBG O2 Sat (Denise) VBG Base Excess Sodium Potassium Chloride Carbon Dioxide Anion Gap BUN Creatinine Est GFR (CKD-EPI)AfAm Est GFR (CKD-EPI)NonAf POC Glucometer 228 Random Glucose Lactic Acid 1.3 Calcium Total Bilirubin AST ALT Alkaline Phosphatase Creatine Kinase Troponin I Total Protein Albumin Triglycerides Cholesterol Total LDL Cholesterol HDL Cholesterol Lipase 1753 H Urine Color Urine Appearance Urine pH Urine Protein Urine Glucose (UA) Urine Ketones Urine Blood Urine Nitrite Urine Bilirubin Urine Urobilinogen Ur Leukocyte Esterase Urine RBC Urine WBC Ur Transition Epith Cell Urine Casts Acetone, Qual 04/10/19 04/10/19 04/10/19 16:10 16:10 18:11 WBC RBC Hgb Hct MCV MCH MCHC RDW Plt Count MPV Absolute Neuts (auto) Neutrophils % Lymphocytes % Monocytes % Eosinophils % Basophils % VBG pH POC VBG pCO2 POC VBG pO2 VBG HCO3 VBG O2 Sat (Denise) VBG Base Excess Sodium 132 L Potassium 4.8 Chloride 107 Carbon Dioxide < 5 L Anion Gap 20 H BUN 22.0 H Creatinine 1.3 Est GFR (CKD-EPI)AfAm 78.55 Est GFR (CKD-EPI)NonAf 67.77 POC Glucometer 211 Random Glucose 226 H Lactic Acid Calcium 9.1 Total Bilirubin AST ALT Alkaline Phosphatase Creatine Kinase Troponin I Total Protein Albumin Triglycerides 229 H Cholesterol 186 Total LDL Cholesterol 84 HDL Cholesterol 56 Lipase Urine Color Urine Appearance Urine pH Urine Protein Urine Glucose (UA) Urine Ketones Urine Blood Urine Nitrite Urine Bilirubin Urine Urobilinogen Ur Leukocyte Esterase Urine RBC Urine WBC Ur Transition Epith Cell Urine Casts Acetone, Qual 04/10/19 19:30 WBC RBC Hgb Hct MCV MCH MCHC RDW Plt Count MPV Absolute Neuts (auto) Neutrophils % Lymphocytes % Monocytes % Eosinophils % Basophils % VBG pH POC VBG pCO2 POC VBG pO2 VBG HCO3 VBG O2 Sat (Denise) VBG Base Excess Sodium Potassium Chloride Carbon Dioxide Anion Gap BUN Creatinine Est GFR (CKD-EPI)AfAm Est GFR (CKD-EPI)NonAf POC Glucometer 207 Random Glucose Lactic Acid Calcium Total Bilirubin AST ALT Alkaline Phosphatase Creatine Kinase Troponin I Total Protein Albumin Triglycerides Cholesterol Total LDL Cholesterol HDL Cholesterol Lipase Urine Color Urine Appearance Urine pH Urine Protein Urine Glucose (UA) Urine Ketones Urine Blood Urine Nitrite Urine Bilirubin Urine Urobilinogen Ur Leukocyte Esterase Urine RBC Urine WBC Ur Transition Epith Cell Urine Casts Acetone, Qual IMP: Resolved DKA SHERLYN CBD dilatation SQ Insulin O2 as needed VTE prophylaxis PO as tolerated OOB to chair Floor Dr Rothman
--- NOTE | 2019-04-11 13:15 | PN ---
<Fernandez Julien - Last Filed: 04/11/19 17:20> Physical Exam: SUBJECTIVE: Patient seen and examined at the bedside. Patient states that he feels better but still has overall weakness and fatigue. Patient denies any further nausea, vomiting, abd pain. States that he feels ready to eat. OBJECTIVE: Vital Signs Period Temp Pulse Resp BP Sys/Boss Pulse Ox Last 24 Hr 97.8 F-98.6 F 86-111 12-26 110-140/63-84 99-100 GENERAL: The patient is awake, alert, and fully oriented, in no acute distress. HEAD: Normal with no signs of trauma. EYES: PERRL, extraocular movements intact, sclera anicteric, conjunctiva clear. No ptosis. NECK: Trachea midline, full range of motion, supple. LUNGS: Breath sounds equal, clear to auscultation bilaterally, no wheezes, no crackles, no accessory muscle use. HEART: Regular rate and rhythm, S1, S2 without murmur, rub or gallop. ABDOMEN: Soft, nontender, nondistended, normoactive bowel sounds, no guarding, no rebound, no hepatosplenomegaly, no masses. EXTREMITIES: 2+ pulses, warm, well-perfused, no edema. NEUROLOGICAL: Cranial nerves II through XII grossly intact. Normal speech, gait not observed. PSYCH: Normal mood, normal affect. SKIN: Warm, dry, normal turgor, no rashes or lesions noted Laboratory Results - last 24 hr 04/10/19 04/10/19 04/10/19 13:40 13:40 13:40 WBC RBC Hgb Hct MCV MCH MCHC RDW Plt Count MPV VBG pH 7.02 L* POC VBG pCO2 29.1 L POC VBG pO2 26.1 L VBG HCO3 7.1 L VBG O2 Sat (Denise) 37.5 L VBG Base Excess -25.2 L Sodium 134 L Potassium 5.4 H Chloride 106 Carbon Dioxide 6 L Anion Gap 22 H BUN 22.0 H Creatinine 1.4 H Est GFR (CKD-EPI)AfAm 71.82 Est GFR (CKD-EPI)NonAf 61.96 POC Glucometer Random Glucose 265 H Hemoglobin A1c % Lactic Acid Calcium 9.5 Phosphorus Magnesium Total Bilirubin AST ALT Alkaline Phosphatase Creatine Kinase 84 Total Protein Albumin Triglycerides Cholesterol Total LDL Cholesterol HDL Cholesterol Total Amylase Lipase 1753 H Acetone, Qual Positive moderate 2+ 04/10/19 04/10/19 04/10/19 15:52 16:10 16:10 WBC RBC Hgb Hct MCV MCH MCHC RDW Plt Count MPV VBG pH POC VBG pCO2 POC VBG pO2 VBG HCO3 VBG O2 Sat (Denise) VBG Base Excess Sodium 132 L Potassium 4.8 Chloride 107 Carbon Dioxide < 5 L Anion Gap 20 H BUN 22.0 H Creatinine 1.3 Est GFR (CKD-EPI)AfAm 78.55 Est GFR (CKD-EPI)NonAf 67.77 POC Glucometer 228 Random Glucose 226 H Hemoglobin A1c % Lactic Acid 1.3 Calcium 9.1 Phosphorus Magnesium Total Bilirubin AST ALT Alkaline Phosphatase Creatine Kinase Total Protein Albumin Triglycerides Cholesterol Total LDL Cholesterol HDL Cholesterol Total Amylase Lipase Acetone, Qual 04/10/19 04/10/19 04/10/19 16:10 18:11 19:30 WBC RBC Hgb Hct MCV MCH MCHC RDW Plt Count MPV VBG pH POC VBG pCO2 POC VBG pO2 VBG HCO3 VBG O2 Sat (Denise) VBG Base Excess Sodium Potassium Chloride Carbon Dioxide Anion Gap BUN Creatinine Est GFR (CKD-EPI)AfAm Est GFR (CKD-EPI)NonAf POC Glucometer 211 207 Random Glucose Hemoglobin A1c % Lactic Acid Calcium Phosphorus Magnesium Total Bilirubin AST ALT Alkaline Phosphatase Creatine Kinase Total Protein Albumin Triglycerides 229 H Cholesterol 186 Total LDL Cholesterol 84 HDL Cholesterol 56 Total Amylase Lipase Acetone, Qual 04/10/19 04/10/19 04/10/19 20:20 22:16 23:55 WBC RBC Hgb Hct MCV MCH MCHC RDW Plt Count MPV VBG pH POC VBG pCO2 POC VBG pO2 VBG HCO3 VBG O2 Sat (Denise) VBG Base Excess Sodium 135 L Potassium 4.6 Chloride 107 Carbon Dioxide 11 L Anion Gap 18 H BUN 19.2 H Creatinine 1.4 H Est GFR (CKD-EPI)AfAm 71.82 Est GFR (CKD-EPI)NonAf 61.96 POC Glucometer 159 214 Random Glucose 161 H Hemoglobin A1c % Lactic Acid Calcium 8.7 Phosphorus 2.4 L Magnesium 2.1 Total Bilirubin AST ALT Alkaline Phosphatase Creatine Kinase Total Protein Albumin Triglycerides Cholesterol Total LDL Cholesterol HDL Cholesterol Total Amylase Lipase Acetone, Qual 04/11/19 04/11/19 04/11/19 00:05 01:03 03:14 WBC RBC Hgb Hct MCV MCH MCHC RDW Plt Count MPV VBG pH POC VBG pCO2 POC VBG pO2 VBG HCO3 VBG O2 Sat (Denise) VBG Base Excess Sodium 137 Potassium 4.7 Chloride 107 Carbon Dioxide 12 L Anion Gap 17 H BUN 16.9 Creatinine 1.3 Est GFR (CKD-EPI)AfAm 78.55 Est GFR (CKD-EPI)NonAf 67.77 POC Glucometer 193 176 Random Glucose 191 H Hemoglobin A1c % Lactic Acid Calcium 8.8 Phosphorus Magnesium Total Bilirubin AST ALT Alkaline Phosphatase Creatine Kinase Total Protein Albumin Triglycerides Cholesterol Total LDL Cholesterol HDL Cholesterol Total Amylase 811 H Lipase Acetone, Qual 04/11/19 04/11/19 04/11/19 03:30 05:27 05:45 WBC 6.1 RBC 4.93 Hgb 15.2 Hct 45.1 MCV 91.4 MCH 30.8 MCHC 33.7 RDW 13.8 Plt Count 294 MPV 8.0 VBG pH POC VBG pCO2 POC VBG pO2 VBG HCO3 VBG O2 Sat (Denise) VBG Base Excess Sodium 137 Potassium 4.3 Chloride 109 H Carbon Dioxide 17 L Anion Gap 11 BUN 15.8 Creatinine 1.3 Est GFR (CKD-EPI)AfAm 78.55 Est GFR (CKD-EPI)NonAf 67.77 POC Glucometer 190 Random Glucose 182 H Hemoglobin A1c % Lactic Acid Calcium 8.9 Phosphorus Magnesium Total Bilirubin AST ALT Alkaline Phosphatase Creatine Kinase Total Protein Albumin Triglycerides Cholesterol Total LDL Cholesterol HDL Cholesterol Total Amylase Lipase Cancelled Acetone, Qual 04/11/19 04/11/19 04/11/19 05:45 07:00 07:54 WBC RBC Hgb Hct MCV MCH MCHC RDW Plt Count MPV VBG pH POC VBG pCO2 POC VBG pO2 VBG HCO3 VBG O2 Sat (Denise) VBG Base Excess Sodium 138 Potassium 4.4 Chloride 108 H Carbon Dioxide 17 L Anion Gap 13 BUN 16.0 Creatinine 1.3 Est GFR (CKD-EPI)AfAm 78.55 Est GFR (CKD-EPI)NonAf 67.77 POC Glucometer 195 Random Glucose 185 H Hemoglobin A1c % 12.6 H Lactic Acid Calcium 9.0 Phosphorus 2.0 L Magnesium 2.5 H Total Bilirubin 0.7 AST 13 L ALT 21 Alkaline Phosphatase 84 Creatine Kinase Total Protein 7.6 Albumin 3.6 Triglycerides Cholesterol Total LDL Cholesterol HDL Cholesterol Total Amylase Lipase 2293 H Acetone, Qual 04/11/19 11:26 WBC RBC Hgb Hct MCV MCH MCHC RDW Plt Count MPV VBG pH POC VBG pCO2 POC VBG pO2 VBG HCO3 VBG O2 Sat (Denise) VBG Base Excess Sodium Potassium Chloride Carbon Dioxide Anion Gap BUN Creatinine Est GFR (CKD-EPI)AfAm Est GFR (CKD-EPI)NonAf POC Glucometer 233 Random Glucose Hemoglobin A1c % Lactic Acid Calcium Phosphorus Magnesium Total Bilirubin AST ALT Alkaline Phosphatase Creatine Kinase Total Protein Albumin Triglycerides Cholesterol Total LDL Cholesterol HDL Cholesterol Total Amylase Lipase Acetone, Qual Active Medications Generic Name Dose Route Start Last Admin Trade Name Freq PRN Reason Stop Dose Admin Heparin Sodium (Porcine) 5,000 unit 04/10/19 22:00 04/11/19 09:54 Heparin - SQ 5,000 unit BID SYED Administration Potassium Chloride/Dextrose/Sod Cl 20 meq in 1,000 mls @ 125 mls/hr 04/10/19 21:30 04/11/19 05:40 D5-1/2ns+20 Meq Kcl - IV 125 mls/hr ASDIR SYED Administration Insulin Aspart 1 vial 04/11/19 11:00 04/11/19 11:45 Novolog Vial Sliding Scale - SQ 4 units ACHS SYED Administration Protocol Insulin Detemir 10 units 04/11/19 22:00 Levemir Vial SQ HS SYED Ondansetron HCl 4 mg 04/10/19 20:42 Zofran Injection IVPUSH Q6H PRN NAUSEA AND/OR VOMITING ASSESSMENT/PLAN: Del Singleton is a 43 year old male with a PMHx of NIDDM who presented with nausea, vomiting, and weakness 2/2 DKA 2/2 to not taking prescribed medications. NEURO - stable CARDIO - stable RESPIRATORY - stable RENAL - SHERLYN likely secondary from DKA and hypovolemia, resolving - CRE 1.3 down from 1.6 ENDOCRINE - anion gap resolved - glucose downtrending - fluids discontinued - pt started on oral intake - Levemir 10mg qhs - sliding scale insulin - a1c 12.6 - continue to trend lytes - Dr. Portillo consulted GI - CBD dilation noted on gallbladder U/S - lipase increased at 2293 and amylase at 811 likely due to acute DKA process - Zofran prn for nausea, vomiting Hematologic - stable ID - no acute issues F/E/N - fluids discontinued - monitor electrolytes - diabetic diet DISPO - stable for transfer to med-surg Problem List - Problems (1) DKA (diabetic ketoacidoses) Code(s): E11.10 - TYPE 2 DIABETES MELLITUS WITH KETOACIDOSIS WITHOUT COMA (2) ARF (acute renal failure) Code(s): N17.9 - ACUTE KIDNEY FAILURE, UNSPECIFIED Visit type - Emergency Visit Emergency Visit: No - New Patient This patient is new to me today: Yes Date on this admission: 04/11/19 - Critical Care Critical Care patient: Yes Total Critical Care Time (in minutes): 35 Critical Care Statement: The care of this patient involved high complexity decision making to prevent further life threatening deterioration of the patient 's condition and/or to evaluate & treat vital organ system(s) failure or risk of failure. <Artemio Valencia - Last Filed: 04/11/19 17:31> Physical Exam: 04/11/19 04/11/19 04/11/19
[2019-04-11] MEDS: INSULIN (LEVEMIR) 100 UNITS/ML UNITS SQ SCH (21:35)
[2019-04-11] MEDS ORDERED: INSULIN (LEVEMIR) 100 UNITS/ML UNITS SQ SCH (22:00)
[2019-04-11] MEDS: ONDANSETRON 4 MG/2 ML VIAL IVPUSH PRN (23:28)
[2019-04-12] MEDS: INSULIN SLIDING SCALE (NOVOLOG) 1 VIAL SQ SCH ×3 (06:27→18:03)
[2019-04-12 08:33] LABS: BASO % 0.5 % (0-2.0); EOS % 0.2 % (0-4.5); HEMATOCRIT 44.6 % (35.4-49); LYMPH % 24.3 % (8-40); MCH 30.5 pg (25.7-33.7); MCHC 33.6 g/dl (32.0-35.9); MEAN CELL VOLUME 90.8 fl (80-96); MEAN PLT VOLUME 8.3 fl (7.5-11.1); MONO % 12.6 % (3.8-10.2); NEUT % 62.4 % (42.8-82.8); PLATELET COUNT 280 K/MM3 (134-434); RBC 4.91 M/mm3 (4.00-5.60); RDW 13.7 % (11.9-15.9); WHITE BLOOD COUNT 3.9 K/mm3 (4.0-10.0)
--- NOTE | 2019-04-12 08:37 | PN ---
Progress Note, Physician History of Present Illness: 43 yo male h/o NIDDM here for second ED visit for n/v abd pain. pt states he was seen in ED 2 days ago for feeling lightheaded. He had been out in sun for at that time he felt to be dehydrated. given fluids bolus, labs felt improved and dc home. yesterday pt began to feel worse developed n/v x 2, and vomiting x2 today- nonbloody nonbilious. Stopped his diabetes medication 2 days ago because was not eating or drinking much.No sick contacts. no other complaints. does have h/o renal stones, denies dysuria, or hematuria. home meds: glipizide, jardiance, and metformin / litagliptan for DM. no insulin. has not taken med for 2 days. Patient was transfered from ICU overnight to [facility] surg bed - Current Medication List Current Medications: Active Medications Heparin Sodium (Porcine) (Heparin -) 5,000 unit SQ BID [facility] Last Admin: 04/11/19 21:34 Dose: 5,000 unit Insulin Aspart (Novolog Vial Sliding Scale -) 1 vial SQ [facility]; Protocol Last Admin: 04/12/19 06:27 Dose: Not Given Insulin Detemir (Levemir Vial) 10 units SQ HS [facility] Last Admin: 04/11/19 21:35 Dose: 10 unit Ondansetron HCl (Zofran Injection) 4 mg IVPUSH Q6H PRN PRN Reason: NAUSEA AND/OR VOMITING Last Admin: 04/11/19 23:28 Dose: 4 mg - Objective Vital Signs: Vital Signs Temperature 98.0 F 04/12/19 06:00 Pulse Rate 100 H 04/12/19 06:00 Respiratory Rate 18 04/12/19 06:00 Blood Pressure 123/78 04/12/19 06:00 O2 Sat by Pulse Oximetry (%) 100 04/11/19 22:00 Constitutional: Yes: Well Nourished, No Distress, Calm Eyes: Yes: WNL, Conjunctiva Clear, EOM Intact HENT: Yes: WNL, Atraumatic, Normocephalic Neck: Yes: WNL, Supple, Trachea Midline Cardiovascular: Yes: WNL, Regular Rate and Rhythm Respiratory: Yes: WNL, Regular, CTA Bilaterally Gastrointestinal: Yes: WNL, Normal Bowel Sounds, Tenderness, Epigastrium ...Rectal Exam: Yes: Deferred Genitourinary: Yes: WNL Musculoskeletal: Yes: WNL Extremities: Yes: WNL Edema: No Peripheral Pulses WNL: Yes Integumentary: Yes: WNL Neurological: Yes: WNL, Alert, Oriented ...Motor Strength: WNL Psychiatric: Yes: WNL, Alert, Oriented - ....Imaging Cat Scan: Report Reviewed, Image Reviewed (Abd CT non obs calculi noted) Problem List - Problems (1) Prophylactic measure Assessment/Plan: FEN resume diabetic diet monitor electrolytes nutrition counseling Give LR bolus of 500cc-Cr remains above baseline DVT Heparin sq Dispo maintain as inpatient maintain in med surg full code discharge planning Code(s): Z29.9 - ENCOUNTER FOR PROPHYLACTIC MEASURES, UNSPECIFIED (2) ARF (acute renal failure) Assessment/Plan: Cr at 1.3 anion gap resolved with IVF in ICU LR bolus 500 cc Code(s): N17.9 - ACUTE KIDNEY FAILURE, UNSPECIFIED (3) DKA (diabetic ketoacidoses) Assessment/Plan: resolved with insulin gtt and fluids Code(s): E11.10 - TYPE 2 DIABETES MELLITUS WITH KETOACIDOSIS WITHOUT COMA (4) Diabetes Assessment/Plan: BGM 140-190 since Insulin gtt has been stopped Continue BGM AC/qHS with novolog sliding scale continue levemir qHS 10 u diabetic diet Code(s): E11.9 - TYPE 2 DIABETES MELLITUS WITHOUT COMPLICATIONS (5) GERD (gastroesophageal reflux disease) Assessment/Plan: c/o acid reflux history of GERD but not on PPI on admission start protonix 40mg qd Code(s): K21.9 - GASTRO-ESOPHAGEAL REFLUX DISEASE WITHOUT ESOPHAGITIS Visit type - Emergency Visit Emergency Visit: Yes ED Registration Date: 04/10/19 Care time: The patient presented to the Emergency Department on the above date and was hospitalized for further evaluation of their emergent condition. - New Patient This patient is new to me today: No - Critical Care Critical Care patient: No - Discharge Referral Referred to [facility] No
[2019-04-12 08:58] LABS: ALBUMIN 3.3 g/dl (3.4-5.0); BILIRUBIN,TOTAL 0.8 mg/dL (0.2-1); BLOOD UREA NITROGEN 14.9 mg/dL (7-18); CALCIUM 9.1 mg/dL (8.5-10.1); CREATININE 1.1 mg/dL (0.55-1.3); MAGNESIUM 2.5 mg/dL (1.8-2.4); POTASSIUM 3.7 mmol/L (3.5-5.1); TOT PROT 7.1 g/dl (6.4-8.2)
--- NOTE | 2019-04-12 09:24 | CONSULT ---
Consult Consult Specialty:: Endocrinology Referred by:: Fernnadez Schafer MD Reason for Consultation:: DKA - History of Present Illness Chief Complaint: Dehydration History of Present Illness: This is a 43 y/o M with h/o of T2DM for 7 years, never on Insulin who presented from [place] [facility] with complaint of nausea and NB/NB emesis x1 found to be in DKA. Pt normally takes Metformin/Litagliptin combo, Jardiance, and Glipizide for glycemic control. Unfortunately patient did not have enough money for his diabetic medications and he was unable to get new medications for the past one month. Pt was previously seen in [facility] for same complaints 2 days prior, however this was attributed to sun-exposure and resolved after IVF was administered. Pt was treated with Insulin and hydration with resolution of DKA. Pt referred for management of DM. Pt doesn't do FS at home. Had polyuria, polydipsia and nocturia preadmission whcih has improved now. Saw ophthalmology in Oct this year. Has occ numbness of feet. Saw podiatry in October alsol. - History Source History Provided By: Patient, Medical Record - Past Medical History Endocrine: Yes: Diabetes Mellitus - Alcohol/Substance Use Hx Alcohol Use: No - Smoking History Smoking history: Never smoked Have you smoked in the past 12 months: No Aproximately how many cigarettes per day: 0 Home Medications - Allergies Allergies/Adverse Reactions: Allergies Allergy/AdvReac Type Severity Reaction Status Date / Time No Known Allergies Allergy Verified 04/08/19 16:52 - Home Medications Home Medications: Ambulatory Orders Aspirin [ASA -] 81 mg PO DAILY 04/08/19 Empagliflozin [Jardiance] 25 mg PO DAILY 04/08/19 Glipizide 5 mg PO DAILY 04/08/19 Linagliptin/Metformin HCl [Jentadueto 2.5 mg-1000 mg Tab] 1 each PO BID Family Disease History - Family Disease History Family Disease History: Diabetes: Mother Review of Systems - Review of Systems Constitutional: reports: Malaise Eyes: reports: No Symptoms HENT: reports: No Symptoms Neck: reports: No Symptoms Cardiovascular: reports: No Symptoms Respiratory: reports: No Symptoms Gastrointestinal: reports: No Symptoms Genitourinary: reports: Other (polyuria, polydipsia, nocturia) Musculoskeletal: reports: No Symptoms Neurological: reports: No Symptoms Hematology/Lymphatic: reports: No Symptoms Physical Exam Vital Signs: Vital Signs Temperature 98.0 F 04/12/19 06:00 Pulse Rate 100 H 04/12/19 06:00 Respiratory Rate 18 04/12/19 06:00 Blood Pressure 123/78 04/12/19 06:00 O2 Sat by Pulse Oximetry (%) 100 04/11/19 22:00 Constitutional: Yes: No Distress, Calm Eyes: Yes: Conjunctiva Clear, EOM Intact HENT: Yes: Atraumatic, Normocephalic Neck: Yes: Supple, Trachea Midline Cardiovascular: Yes: Regular Rate and Rhythm Respiratory: Yes: Regular, CTA Bilaterally Gastrointestinal: Yes: Normal Bowel Sounds, Soft Musculoskeletal: Yes: WNL Extremities: Yes: WNL Edema: No Neurological: Yes: Alert, Oriented Labs: CBC, BMP 04/12/19 07:30 04/12/19 07:30 Assessment/Plan AP; DKA T2DM: A1c 12.6 High Amylase/Lipase: Normal pancreas on CT Dilated CBD Nonobstructing renal stones Diet exercise discussed Diabetes education done Will get C peptide, GABRIELA Ab as outpatient Continue Levemir 10 units daily Novolog SS coverage No oral hypoglycemics for now Will need to be on Insulin from now onwards unless it is shown that c peptide level is normal and antibodies are negative Nutrition consult Consider GI consult Will f/u
[2019-04-12] MEDS: HEPARIN NA (PORCINE) 5,000 UNITS/ML 1ML VIAL SQ SCH ×2 (09:38→21:42)
[2019-04-12] MEDS ORDERED: LACTATED RINGERS SOLUTION 1,000 ML/1,000 ML INFUS.BAG IV ONE (09:38)
[2019-04-12] MEDS: ONDANSETRON 4 MG/2 ML VIAL IVPUSH PRN (09:39)
[2019-04-12] MEDS: PANTOPRAZOLE 40 MG TABLET (FP) PO SCH (10:48)
[2019-04-12 16:02] VITALS: BMI 23.4
[2019-04-12] MEDS ORDERED: INSULIN (NOVOLOG) ASPART 100 UNITS/ML 10ML VIAL ONE (18:11)
[2019-04-12] MEDS: INSULIN (LEVEMIR) 100 UNITS/ML UNITS SQ SCH (21:40)
[2019-04-12] MEDS ORDERED: Insulin (LOG) Aspart 100 UNITS/ML VIAL SQ SCH (22:00)
[2019-04-12] MEDS ORDERED: PT OWN MED DRAWER 7, Y5N ONE (23:13)
[2019-04-13] MEDS: INSULIN SLIDING SCALE (NOVOLOG) 1 VIAL SQ SCH (06:00)
[2019-04-13] MEDS ORDERED: PT OWN MED DRAWER 7, Y5N ONE (06:20)
[2019-04-13 08:38] LABS: BASO % 0.4 % (0-2.0); EOS % 0.5 % (0-4.5); HEMATOCRIT 39.2 % (35.4-49); HEMOGLOBIN 13.5 GM/dL (11.7-16.9); LYMPH % 45.6 % (8-40); MCH 30.7 pg (25.7-33.7); MCHC 34.5 g/dl (32.0-35.9); MEAN PLT VOLUME 8.2 fl (7.5-11.1); MONO % 15.3 % (3.8-10.2); NEUT % 38.2 % (42.8-82.8); PLATELET COUNT 269 K/MM3 (134-434); RDW 13.2 % (11.9-15.9); WHITE BLOOD COUNT 2.7 K/mm3 (4.0-10.0)
[2019-04-13 08:46] LABS: ALBUMIN 2.8 g/dl (3.4-5.0); BILIRUBIN,TOTAL 1.2 mg/dL (0.2-1); BLOOD UREA NITROGEN 12.1 mg/dL (7-18); CALCIUM 8.9 mg/dL (8.5-10.1); CREATININE 0.9 mg/dL (0.55-1.3); MAGNESIUM 2.3 mg/dL (1.8-2.4); POTASSIUM 3.8 mmol/L (3.5-5.1); TOT PROT 6.2 g/dl (6.4-8.2)
[2019-04-13 09:22] VITALS: BP 133/79; PULSE 104; TEMP 97.5
[2019-04-13] MEDS: HEPARIN NA (PORCINE) 5,000 UNITS/ML 1ML VIAL SQ SCH (09:39)
[2019-04-13] MEDS: PANTOPRAZOLE 40 MG TABLET (FP) PO SCH (09:39)
[2019-04-13] MEDS ORDERED: INSULIN SLIDING SCALE (NOVOLOG) 1 VIAL SQ SCH (11:00)
--- NOTE | 2019-04-13 11:06 | DS ---
Physical Examination Vital Signs: Vital Signs Temperature 97.5 F L 04/13/19 09:20 Pulse Rate 104 H 04/13/19 09:20 Respiratory Rate 20 04/13/19 09:20 Blood Pressure 133/79 04/13/19 09:20 O2 Sat by Pulse Oximetry (%) 100 04/12/19 21:00 Constitutional: Yes: Well Nourished, No Distress, Calm Eyes: Yes: WNL, Conjunctiva Clear, EOM Intact HENT: Yes: WNL, Atraumatic, Normocephalic Neck: Yes: WNL, Supple, Trachea Midline Cardiovascular: Yes: WNL, Regular Rate and Rhythm Respiratory: Yes: WNL, Regular, CTA Bilaterally Gastrointestinal: Yes: WNL, Normal Bowel Sounds, Soft ...Rectal Exam: Yes: Deferred Renal/: Yes: WNL Musculoskeletal: Yes: WNL Extremities: Yes: WNL Edema: No Peripheral Pulses WNL: Yes Integumentary: Yes: WNL Neurological: Yes: WNL, Alert, Oriented ...Motor Strength: WNL Psychiatric: Yes: WNL, Alert, Oriented Labs: CBC, BMP 04/13/19 07:35 04/13/19 07:35 Discharge Summary Reason For Visit: PANCREATITIS Current Active Problems ARF (acute renal failure) (Acute) DKA (diabetic ketoacidoses) (Acute) Diabetes (Acute) GERD (gastroesophageal reflux disease) (Acute) Intractable vomiting (Acute) Prophylactic measure (Acute) Hospital Course: Problem List admitted from ED in DKA after running out of his oral hypoglcemics. Started on Insulin infusion with good glycemic control. STarted on Levemir with good control. Continue with novolog sliding scale and levemir at bed time - Problems (1) Prophylactic measure Assessment/Plan: FEN resume diabetic diet nutrition counseling DVT Heparin sq while hispotalized. No need fir further anticoagulation (2) ARF (acute renal failure) Assessment/Plan: Resolved. Cr at 0.9 (3) DKA (diabetic ketoacidoses) Assessment/Plan: resolved with insulin gtt and fluids (4) Diabetes Assessment/Plan: BGM 140-190 since Insulin gtt has been stopped Continue BGM AC/qHS with novolog sliding scale continue levemir qHS 10 u diabetic diet (5) GERD (gastroesophageal reflux disease) Assessment/Plan: c/o acid reflux history of GERD but not on PPI on admission started protonix 40mg qd with good response Condition: Improved - Instructions Diet, Activity, Other Instructions: Call Dr Montiel diabetes doctor for follow up appointment Resume diabetic diet, no concentrated sweets. Take LEVEMER 10 units every day at bedtime Check you blood sugars before meals and at bedside and cover your blood sugar with NOVOLOG sliding scale Novolog Insulin Sliding Scale Check Blood sugar BEFORE all meals and BEFORE bed If BS is: <60 drink some juice and recheck in an hour 100-150 no insulin 151-200 4u of insulin 201-250 6u of insulin 251-300 8u of insulin 301-350 10u of insulin 351-400 12u of insulin >401 14u and call doctor Diabetic diet Levemir (Insulin Detemir) Levemir is a long-acting (basal) insulin analog manufactured by [employer]. Its generic name is insulin detemir. Levemir is designed to provide 24- hour blood sugar control and to lower the A1C in those with type 1 and type 2 diabetes. Insulin detemir is created by recombinant DNA technology and is produced by [employer]. It also contains zinc, mannitol, hydrochloric acid or sodium hydroxide to adjust its pH level, and other chemicals. Levemir was first approved by the FDA in March of 2005. It then received two more approvals in 2012: for use by women and in children 2 to 5 years old with type 1 diabetes. How Does Levemir Work? Levemir starts to work on bringing down your blood sugar levels a few hours after injection. Peak concentration occurs in about six to eight hours after injection. Levemir is designed to keep working for around 24 hours (and to stay at close to peak levels for that amount of time), but some people clear the medication out of their bodies more quickly. As a long-acting insulin, Levemir can be injected either once or twice daily. How quickly your body processes and clears Levemir will determine how often you will need to inject this insulin. When you first start Levemir, youll need to test your blood sugars frequently and work with your doctor to determine your ideal dosage and injection frequency. Some people have even reported on diabetes forums that its necessary to split their Levemir dose into three or four injections a day, in order to get the best blood glucose control. How Should Levemir Be Used? Levemir is administered by injection, with the use of a prefilled pen device called a FlexTouch. This device has been designed to require less force to push the injection button, resulting in less discomfort. Unlike other insulin pens, the FlexTouch can remain unrefrigerated (once opened) for up to 42 days in temperatures 86 degrees Fahrenheit or cooler. Levemir is also available in vials and can be injected using syringes. Once opened, vials must be kept below 86 degrees Fahrenheit for up to 42 days. If your doctor has prescribed a once-daily dose of Levemir, then make your evening meal or your bedtime your regular injection time. If youre on a twice-daily injection regimen, give yourself at least twelve hours between doses. Levemir should not be used in an insulin pump, mixed with other insulins, or injected into a vein or muscle. What Are the Side Effects of Levemir? Hypoglycemia is a common side effect of all types of insulin. Know the signs and how to treat a low blood sugar episode. Also be sure your family, friends, and caretakers understand how to recognize and treat hypoglycemia, in case you are unable to do so yourself. Other common side effects of Levemir include: Itching or a mild skin rash Thickening or hollowing of the skin at your injection site. Always rotate injection sites to prevent tissue damage. Low blood potassium levels Increased heart rate Tiredness Headache Confusion Hunger Nausea Muscle weakness Blurry vision Insulin and Diabetes Types of Insulin For people who need to take external or supplemental insulin (insulin your body did not produce but that was instead made by a pharmaceutical company), there are several different types and kinds of insulin. The insulin you take will depend on your personal needs. Different types of insulin work differently in different people. Heres a chart of how the types of insulin work to replicate the normal pancreatic delivery of insulin and how they are typically used. Rapid-acting insulin analogs (Insulin Aspart, Insulin Lispro, Insulin Glulisine): Usually taken as a bolus before a meal to cover the blood glucose elevation from eating or to correct for high blood glucose. This type of insulin is often used with longer-acting insulin, which is used to cover the bodys metabolic need for insulin. Short-acting synthetic human insulin (Regular): Usually taken as a bolus about 30 minutes before a meal to cover the blood glucose elevation from eating or to correct for high blood glucose. Short-acting insulin is different different from Rapid-acting in its Onset and Peak. This type of insulin is often used with longer-acting insulin, which is used to cover the bodys metabolic need for insulin. Intermediate-acting synthetic human insulin (NPH): Usually taken twice a day as a combination bolus and basal insulin. This type of insulin is often combined with Rapid-acting or Short-acting insulin to cover meals before and/or after its Peak. Long-acting insulin analogs (Insulin Glargine, Insulin Detemir): Usually taken once or twice a day as a basal insulin to cover the bodys metabolic need for insulin. This type of insulin is often combined, when needed, with Rapid- acting or Short-acting insulin as a bolus before meals or to correct for high blood glucose. Bolus Insulin Bolus insulin, or a bolus refers to insulin that is fast acting and is given to cover the carbohydrates in a meal or to bring down high blood glucose. Bolus insulin include Humalog, Novolog and Apidra. Basal Insulin Basal insulin refers to insulin that is long acting and used to to keep blood sugar stable in between meal and correction boluses and at night. The body needs some insulin even when no food is being consumed to fuel your brain and essential organs. As a result, a longer acting insulin is typically combined with a fast acting in order to manage blood sugars throughout all hours of the day and night. Basal insulin include Lantus, Levemir, Tresiba and Toujeo. Inhalable Insulin There is currently one type of inhalable insulin on the market called Afrezza. Inhalable insulin is a man-made insulin with is inhaled through the nostrils by way of a nebulizer device (like asthma medications). The [facility] says it is considered a mealtime insulin and is to be taken at the start of a meal. Buying and Storing Insulin In the [place], Regular and NPH insulin types are available without a prescription (as are syringes). All other types of insulin require a prescription for purchase and can be bought at most any pharmacy. Many insurance plans offer a 3 month mail order service you can purchase a 3 month supply of insulin with. This may amount to a time and financial savings of insulin purchases. Unopened insulin needs to be stored in the refrigerator. Once opened, Regular and NPH insulin last approximately two weeks outside of refrigeration (check drug insert for specifics) and the other insulin types last approximately one month outside of refrigeration. In that time, insulin must not get too hot or cold. The [place] [employer] has tips on storing insulin: Do not store your insulin near extreme heat or extreme cold. Never store insulin in the freezer, direct sunlight, or in the glove compartment of a car. Check the expiration date before using, and dont use any insulin beyond its expiration date. Examine the bottle closely to make sure the insulin looks normal before you draw the insulin into the syringe. Using Insulin In people without diabetes, the body makes and releases insulin in an efficient way with exact doses. In people with diabetes who require the use of external insulin, a person must either administer their own insulin with a syringe, pen, pod, or pump. When carbohydrates are consumed, those carbohydrates are digested and broken down into glucose (sugar) in the blood. Insulin enables that glucose to: enter a cell in the body and be used instantly for energy be converted into glycogen and stored in the muscles or liver be stored as body fat because the body doesnt need it instantly for energy, and the glycogen storages are full Without enough insulin present in the body, you will experience high blood sugars, also known as hyperglycemia. For a person who has not yet been diagnosed with diabetes, a high blood sugar is the number one sign and can be measured easily at the doctors office with a simple blood test. A high blood sugar is considered anything above 130 mg/dL or 7.2 mmol/L. For a person to be diagnosed with diabetes, the duration and timing of high blood sugars are important factors for diagnosis rather than just one random finger stick reading. Too much insulin in the body can lead to low blood sugars, also known as hypoglycemia. Low blood sugars are any measurement on your glucose meter below 70 mg/dL or 3.9 mmol/L, and it should be treated quickly with a form of easy-to- digest carbohydrate like juice or glucose tabs. Referrals: Chava Montiel MD [Staff Physician] - Disposition: HOME - Home Medications Comprehensive Discharge Medication List: Ambulatory Orders Aspirin [ASA -] 81 mg PO DAILY 04/08/19 Insulin (Levemir) [Levemir Vial] 10 units SQ HS #3 vial 04/13/19 Insulin Sliding Scale [Novolog Vial Sliding Scale -] 1 vial SQ ACHS #100 units 04/13/19 Insulin Sliding Scale [Novolog Vial Sliding Scale -] 100 vial SQ ACHS #100 units 04/13/19 Insulin Sliding Scale [Novolog Vial Sliding Scale -] 100 vial SQ ACHS #100 units 04/13/19 Lancets [Lancets Ultra Thin] 1 each ACHS #100 each 04/13/19 Pantoprazole Sodium [Protonix -] 40 mg PO DAILY #30 tablet.ec 04/13/19 Syring-Needl,Disp,Insul,0.3 ml [Insulin Syringe] 1 each ASDIR #100 disp.syrin 04/13/19 This patient is new to me today: No Emergency Visit: Yes ED Registration Date: 04/10/19 Care time: The patient presented to the Emergency Department on the above date and was hospitalized for further evaluation of their emergent condition. Critical Care patient: No - Discharge Referral Referred to [facility] Med P.C.: No
[2019-04-13] MEDS ORDERED: INSULIN (NOVOLOG) ASPART 100 UNITS/ML 10ML VIAL ONE (11:44)
== END 2019-04-13 14:35 | disposition home or self-care (01) | DRG 469 ==
LOC: FER 10:00 → JICU 19:00 → J5S 04-11 20:58
PROVIDERS: ADMIT Internal Medicine; ATTEND Nurse Practitioner Acute Care
DX: N17.9 Acute kidney failure, unspecified (principal); E11.10 Type 2 diabetes mellitus with ketoacidosis without coma; K85.90 Acute pancreatitis without necrosis or infection, unspecified; K83.8 Other specified diseases of biliary tract; Z79.84 Long term (current) use of oral hypoglycemic drugs; Z91.14 Patient's other noncompliance with medication regimen; E86.1 Hypovolemia; K21.9 Gastro-esophageal reflux disease without esophagitis; N20.0 Calculus of kidney
CPT/HCPCS: 36415; 74176-TC; 76705-TC; 76775-TC; 80048; 80053; 80061; 81003; 81015; 82009; 82150; 82550; 82803; 82962; 83036; 83605; 83690; 83735; 84100; 84484; 85025; 85027; 90732; 93005; 99285-25; G0009; J1644; J7030

== ENCOUNTER 2020-09-12 21:47 | Emergency (ER) | payer OTHER ==
[2020-09-12 21:59] VITALS: BP 147/94; PULSE 90; TEMP 98.8; BMI 28.6
[2020-09-12] MEDS ORDERED: KETOROLAC TROMETHAMINE 60 MG/2 ML VIAL IM ONE (22:48)
[2020-09-12] MEDS ORDERED: KETOROLAC TROMETHAMINE 60 MG/2 ML VIAL ONE (22:50)
== END 2020-09-12 23:17 | disposition home or self-care (01) ==
LOC: FER 21:47
PROC: 3E0233Z Introduction of Anti-inflammatory into Muscle, Percutaneous Approach (ICD-10-PCS; principal; 2020-09-12)
DX: S43.421A Sprain of right rotator cuff capsule, initial encounter (principal)
CPT/HCPCS: 73030-TC-RT-FY; 99284-25